=== PATIENT | male | born 1995 | race Caucasian/White ===

== ENCOUNTER 2018-03-15 11:09 | Emergency (ER) | payer MEDICAID ==
[~2018-03-15] VITALS: Ht 180.3 cm; Wt 100.0 kg
[~2018-03-15 11:09] MED LIST: AMOXICILLIN500 MG PO; BACTRIM DS1 TAB PO; CEPHALEXIN500 MG PO; LORTAB 10-325 M1 TAB PO; LORTAB 5-325 MG1 TAB PO; NAPROSYN500 MG PO; ULTRAM50 M1 PO
[2018-03-15 12:12] LABS: HEMATOCRIT 43.3 % (39.0-50.0); HEMOGLOBIN 14.9 g/dl (14.0-18.0); IMMATURE GRANULOCYTES 0.3 % (0.0-1.0); MEAN CELL VOLUME 90.2 fL CALC (80.0-100.0); MEAN CORPUSCULAR HGB CONC 34.4 g/L CALC (32.0-36.0); NEUT# 3.78 thou/uL (1.82-7.42); RED BLOOD COUNT 4.8 mill/uL (4.70-6.10); RED CELL DISTRI WIDTH 12.3 % (11.5-15.5)
[2018-03-15 12:31] LABS: ALBUMIN 4.4 g/dL (3.2-5.0); ALKALINE PHOSPHATASE 85 u/l (38-126); ANION GAP 19 (6-22 (CALC)); BILIRUBIN, TOTAL 0.5 mg/dL (0.0-1.4); BUN 12 mg/dL (9-20); BUN/CREATININE RATIO 11 (12-20 (CALC)); CARBON DIOXIDE 25 mmol/l (22-30); CHLORIDE 104 mmol/l (95-108); CREATININE 1.2 mg/dL (0.7-1.3); GFR > 60 ML/MIN (>=60 (CALC)); GFR FOR AFR.AMER. > 60 ML/MIN (>=60 (CALC)); POTASSIUM 3.9 mmol/l (3.5-5.1); SGOT/AST 40 u/l (17-59); SGPT/ALT 110 u/l (21-72); SODIUM 144 mmol/l (137-146); TOTAL PROTEIN 7.7 g/dL (6.3-8.2)
[2018-03-15 13:38] LABS: BARBITURATES NEGATIVE (NEGATIVE); COCAINE NEGATIVE (NEGATIVE); METHADONE NEGATIVE (NEGATIVE); OXCYCODONE NEGATIVE (NEGATIVE); TETRAHYDROCANNABIONOL NEGATIVE (NEGATIVE); TRICYLIC ANTIDEPRESSANTS NEGATIVE (NEGATIVE)
[2018-03-15] MEDS ORDERED: TORADOL PO (13:42)
[2018-03-15] MEDS ORDERED: FLEXERIL PO (13:42)
[2018-03-15 14:19] VITALS: BP 119/70
== END 2018-03-15 14:19 | disposition home or self-care (01) | DRG 103 ==
LOC: ED 11:09
PROVIDERS: Emergency Medicine
DX: R51 Headache (principal); F17.210 Nicotine dependence, cigarettes, uncomplicated

== ENCOUNTER 2018-05-31 12:44 | Emergency (ER) | payer MEDICAID ==
[~2018-05-31] VITALS: Ht 180.3 cm; Wt 100.0 kg
[~2018-05-31 12:44] MED LIST changes: +FLEXERIL PO; +TORADOL PO
[2018-05-31 13:33] LABS: INFLUENZA A NONE DETECTED (NONE DETECT); INFLUENZA B NONE DETECTED (NONE DETECT)
[2018-05-31 13:54] VITALS: BP 141/85
== END 2018-05-31 13:54 | disposition home or self-care (01) ==
LOC: ED 12:44
DX: B34.9 Viral infection, unspecified (principal); F17.210 Nicotine dependence, cigarettes, uncomplicated; J02.9 Acute pharyngitis, unspecified; R09.81 Nasal congestion; R52 Pain, unspecified

== ENCOUNTER 2018-07-14 17:29 | Emergency (ER) | payer MEDICAID ==
[~2018-07-14] VITALS: Ht 180.3 cm; Wt 105.0 kg
[2018-07-14 18:39] VITALS: BP 131/66
== END 2018-07-14 18:43 | disposition home or self-care (01) ==
LOC: ED 17:29
DX: F17.210 Nicotine dependence, cigarettes, uncomplicated (principal); R51 Headache; R11.0 Nausea; H53.149 Visual discomfort, unspecified

== ENCOUNTER 2018-08-11 10:23 | Emergency (ER) | payer MEDICAID ==
[~2018-08-11] VITALS: Ht 180.3 cm; Wt 70.0 kg
[2018-08-11] MEDS ORDERED: IMITREX25 MG PO (11:29)
[2018-08-11 11:39] VITALS: BP 125/77
== END 2018-08-11 11:41 | disposition home or self-care (01) ==
LOC: ED 10:23
DX: R51 Headache (principal); F17.210 Nicotine dependence, cigarettes, uncomplicated

== ENCOUNTER 2018-09-06 16:09 | Emergency (ER) | payer SELFPAY ==
[~2018-09-06] VITALS: Ht 180.3 cm; Wt 121.0 kg
[~2018-09-06 16:09] MED LIST changes: +IMITREX25 MG PO
[2018-09-06] MEDS ORDERED: IMITREX25 MG PO (17:05)
[2018-09-06 17:25] VITALS: BP 128/83
== END 2018-09-06 17:25 | disposition home or self-care (01) | DRG 103 ==
LOC: ED 16:09
DX: R51 Headache (principal); F17.210 Nicotine dependence, cigarettes, uncomplicated

== ENCOUNTER 2018-11-29 18:26 | Emergency (ER) | payer BC ==
[~2018-11-29] VITALS: Ht 180.3 cm; Wt 99.0 kg
[2018-11-29] MEDS ORDERED: TORADOL PO (18:52)
[2018-11-29] MEDS ORDERED: BACTRIM DS1 TAB PO (18:52)
[2018-11-29 19:12] VITALS: BP 141/84
== END 2018-11-29 19:12 | disposition home or self-care (01) | DRG 603 ==
LOC: ED 18:26
DX: L02.221 Furuncle of abdominal wall (principal); F17.210 Nicotine dependence, cigarettes, uncomplicated

== ENCOUNTER 2018-12-15 19:23 | Emergency (ER) | payer BC ==
[~2018-12-15] VITALS: Ht 180.3 cm; Wt 97.2 kg
[2018-12-15 20:50] LABS: HEMATOCRIT 41.5 % (39.0-50.0); HEMOGLOBIN 14.4 g/dl (14.0-18.0); IMMATURE GRANULOCYTES 0.5 % (0.0-5.0); MEAN CELL VOLUME 90.8 fL CALC (80.0-100.0); MEAN CORPUSCULAR HGB 31.5 pG CALC (26.0-32.0); MEAN CORPUSCULAR HGB CONC 34.7 g/L CALC (32.0-36.0); NEUT# 5.37 thou/uL (1.82-7.42); RED BLOOD COUNT 4.57 mill/uL (4.70-6.10); RED CELL DISTRI WIDTH 12.1 % (11.5-15.5)
[2018-12-15 21:02] LABS: ALBUMIN 4.5 g/dL (3.2-5.0); ALKALINE PHOSPHATASE 78 u/l (38-126); ANION GAP 15 (6-22 (CALC)); BILIRUBIN, TOTAL 0.5 mg/dL (0.0-1.4); BUN 14 mg/dL (9-20); BUN/CREATININE RATIO 14 (12-20 (CALC)); CARBON DIOXIDE 26 mmol/l (22-30); CHLORIDE 103 mmol/l (95-108); GFR > 60 ML/MIN (>=60 (CALC)); GFR FOR AFR.AMER. > 60 ML/MIN (>=60 (CALC)); POTASSIUM 3.9 mmol/l (3.5-5.1); SGOT/AST 46 u/l (17-59); SODIUM 141 mmol/l (137-146); TOTAL PROTEIN 7.4 g/dL (6.3-8.2)
[2018-12-15] MEDS ORDERED: KEFLEX500 MG PO (23:05)
[2018-12-15] MEDS ORDERED: CIPROFLOXACN500 MG PO (23:05)
[2018-12-15] MEDS ORDERED: PERCOCET 5/325M1 TAB PO (23:05)
[2018-12-15] MEDS ORDERED: IBUPROFEN600 MG PO (23:05)
[2018-12-15 23:25] VITALS: BP 128/77
== END 2018-12-15 23:30 | disposition home or self-care (01) | DRG 603 ==
LOC: ED 19:23
PROVIDERS: Emergency Medicine
PROC: 0H97XZZ Drainage of Abdomen Skin, External Approach (ICD-10-PCS; principal; 2018-12-15)
DX: L02.211 Cutaneous abscess of abdominal wall (principal)
CPT/HCPCS: Q9967

== ENCOUNTER 2018-12-20 16:55 | Emergency (ER) | payer BC ==
[~2018-12-20] VITALS: Ht 180.3 cm; Wt 97.7 kg
[~2018-12-20 16:55] MED LIST changes: +CIPROFLOXACN500 MG PO; +IBUPROFEN600 MG PO; +KEFLEX500 MG PO; +PERCOCET 5/325M1 TAB PO
[2018-12-20] MEDS ORDERED: DOXYCYC MONO100 M1 PO (17:32)
[2018-12-20 17:43] VITALS: BP 132/87
== END 2018-12-20 17:40 | disposition home or self-care (01) | DRG 951 ==
LOC: ED 16:55
DX: Z48.01 Encounter for change or removal of surgical wound dressing (principal); F17.210 Nicotine dependence, cigarettes, uncomplicated

== ENCOUNTER 2024-06-30 10:24 | Emergency (ER) | payer OTHER, BC ==
[~2024-06-30] VITALS: Ht 180.3 cm; Wt 102.1 kg
[~2024-06-30 10:24] MED LIST changes: +DOXYCYC MONO100 M1 PO
[2024-06-30 11:06] VITALS: BP 123/87
[2024-06-30 11:15] VITALS: BP 117/77
[2024-06-30 11:30] VITALS: BP 120/84
[2024-06-30 11:45] VITALS: BP 129/83
[2024-06-30] MEDS ORDERED: AMOXICILLIN & POT CLAVULANATE 875 MG/TAB PO ONE (11:50)
[2024-06-30] MEDS ORDERED: predniSONE 20 MG/TAB PO ONE (11:50)
[2024-06-30] MEDS ORDERED: PREDNISONE50 MG PO (11:58)
[2024-06-30] MEDS ORDERED: AMOX/K CLAV875 M1 PO (11:58)
[2024-06-30 12:00] VITALS: BP 121/88
[2024-06-30 12:15] VITALS: BP 124/86
== END 2024-06-30 12:32 | disposition home or self-care (01) | DRG 916 ==
LOC: ED 10:24
DX: T78.40XA Allergy, unspecified, initial encounter (principal); I10 Essential (primary) hypertension; X58.XXXA Exposure to other specified factors, initial encounter

== ENCOUNTER 2024-10-28 15:10 | Emergency (ER) | payer OTHER, BC ==
[~2024-10-28] VITALS: Ht 180.3 cm; Wt 106.0 kg
[~2024-10-28 15:10] MED LIST changes: +AMOX/K CLAV875 M1 PO; +PREDNISONE50 MG PO
[2024-10-28 15:27] VITALS: BP 127/85
[2024-10-28 15:30] VITALS: BP 136/82
[2024-10-28 15:45] VITALS: BP 139/88
[2024-10-28] MEDS ORDERED: ONDANSETRON 4 MG/TAB ODT PO ONE (15:50)
[2024-10-28] MEDS ORDERED: oxyCODONE 5MG/ ACETAMINOPHEN 325MG TAB PO ONE (15:50)
[2024-10-28 15:59] LABS: BASO% 0.6 % (0-3); EOS% 3.8 % (0-8); HEMATOCRIT 43.3 % (39.0-50.0); HEMOGLOBIN 15.1 g/dl (14.0-18.0); IMMATURE GRANULOCYTES 0.2 % (0.0-5.0); LYMPH% 33.5 % (15-41); MEAN CORPUSCULAR HGB 31.7 pG CALC (26.0-32.0); MEAN CORPUSCULAR HGB CONC 34.9 g/dL CAL (32.0-36.0); NEUT# 4.26 thou/uL (1.82-7.42); NEUT% 51.9 % (42-76); RED BLOOD COUNT 4.76 mill/uL (4.70-6.10); RED CELL DISTRI WIDTH 12.2 % (11.5-15.5)
[2024-10-28 16:15] LABS: ALBUMIN 4.5 g/dL (3.2-5.0); BILIRUBIN, TOTAL 0.7 mg/dL (0.2-1.3); POTASSIUM 4.1 mmol/l (3.5-5.1); TOTAL PROTEIN 7.3 g/dL (6.3-8.2)
[2024-10-28 16:20] LABS: CREATININE 1.1 mg/dL (0.7-1.3)
[2024-10-28 18:27] VITALS: BP 132/81
== END 2024-10-28 18:27 | disposition home or self-care (01) | DRG 556 ==
LOC: ED 15:10
PROVIDERS: Nurse Practitioner Family
DX: M25.552 Pain in left hip (principal); M25.412 Effusion, left shoulder; M54.50 Low back pain, unspecified; M43.06 Spondylolysis, lumbar region; I10 Essential (primary) hypertension; F17.210 Nicotine dependence, cigarettes, uncomplicated; V53.5XXA Driver of pick-up truck or van injured in collision with car, pick-up truck or van in traffic accident, initial encounter